=== PATIENT | female | born 1945 | race Two or more races ===

== ENCOUNTER 2023-12-18 08:47 | Day surgery (SDC) | payer MEDICARE, OTHER, SELFPAY ==
--- NOTE | 2023-12-18 10:11 | W.PN.UPDATE ---
Update Note
Progress Note Update
Patient presented for outpatient CD cardioversion for symptomatic AF found to be in sinus rhythm 67 bpm with iRBBB. QTc 445ms. Procedure cancelled. Updated her public policy analyst Dr. Jonas. Recommend outpatient follow up to discuss treatment options for
PAF. Continue current therapy with metoprolol succinate and OAC with Eliquis.
== END 2023-12-18 10:30 | disposition home or self-care (01) ==
LOC: CATH 08:47
PROVIDERS: ATTENDING PHYSICIAN Internal Medicine Cardiovascular Disease; FAMILY PHYSICIAN Internal Medicine; OTHER PHYSICIAN Internal Medicine Cardiovascular Disease
DX: I48.0 Paroxysmal atrial fibrillation (principal); Z53.09 Procedure and treatment not carried out because of other contraindication; I45.10 Unspecified right bundle-branch block; Z79.01 Long term (current) use of anticoagulants; Z79.899 Other long term (current) drug therapy
CPT/HCPCS: 93005

== ENCOUNTER → 2024-01-07 13:37 | Outpatient (REF) | payer MEDICARE, OTHER, SELFPAY | LOC: HWRCS 13:37 | PROVIDERS: ATTENDING PHYSICIAN Physician Assistant Medical; FAMILY PHYSICIAN Internal Medicine | DX: I45.10 Unspecified right bundle-branch block (principal); I48.0 Paroxysmal atrial fibrillation | CPT/HCPCS: 93306 ==

== ENCOUNTER 2024-02-25 10:35 | Emergency (ER) | payer MEDICARE, OTHER, SELFPAY ==
[2024-02-25] VITALS (9 sets, daily range): BP systolic 100–147; BP diastolic 51–96
--- NOTE | 2024-02-25 11:01 | ED.GENMED ---
History of Present Illness
General
Chief Complaint: Heart Rate Problem
Source: patient and spouse
Exam Limitations: none
Time Seen by Provider: 02/25/24 10:50
Nursing documentation reviewed up to this point in time: agreed with
History of Present Illness
History of Present Illness:
78-year-old female presents emergency room due to feeling of heart racing. She has a history of atrial fibrillation. She takes Eliquis. She was scheduled to have a cardioversion in December, but was found to be in sinus rhythm at that time. She
does not drink alcohol, and denies being sick.
Past History
Past History
ED Past Medical History: Arrthythmia and HTN
ED Past Surgical History: Appendectomy
Social History
Tobacco: Non-smoker
Alcohol: None
Drug: None
Personal:
Living: with family
Review of Systems
Review of Systems
Allergies reviewed?: Yes
All Other Systems: Not applicable
Constitutional: Reports no symptoms
EENT: Reports no symptoms
Respiratory: Reports no symptoms
Cardiac: Reports palpitations
ABD/GI: Reports no symptoms
: Reports no symptoms
Musculoskeletal: Reports no symptoms
Skin: Reports no symptoms
Neurological: Reports no symptoms
Endocrine: Reports no symptoms
Hematologic/Lymphatic: Reports no symptoms
Psychiatric: Reports no symptoms
Phy Exam
Physical Exam
Physical Exam:
Physical Exam
General: no apparent distress, not acutely ill
Neck: supple. no meningeal signs. normal posterior pharynx
Heart: s1/s2 tachycardia, irregular rhythm, no murmur. equal radial
pulses.
HEENT: Pupils equal round reactive to light, EOMI
Lungs: no acute respiratory distress. clear bilaterally
Abdomen: normal bowel sounds. not tender. no CVAT
Neuro: alert and oriented. no focal neurological deficits cranial nerves II through XII intact
Skin: no rash
Psychiatric: well kept. interactive and cooperative
Extremities: no edema. no calf tenderness. negative homans. good distal pulses
Course
Orders/Labs/Results
Orders:
Orders
02/25/24 10:35
ECG [Electrocardiogram (*1)] Urgent
Reason for Study: Palpitations
02/25/24 10:36
EKG- Treatment ONCE
02/25/24 10:59
IV Insert/Care/Rem.- Treatment PRN
Diltiazem 125 mg/125 ml Nss [Cardizem] 125 mg in 125 ml IV NOW
Initial dose in mg/hr, then titrate:: 5
Titrate to keep:: Heart rate 80-100 bpm
Titrate by mg/hr:: 5 mg/hr
Frequency of titrations (minutes):: 15
Maximum dose in mg/hr:: 15
Diltiazem HCl [Cardizem] 5 mg IV NOW STA
02/25/24 11:00
Cardiac Monitoring- Treatment ONCE
02/25/24 11:02
Complete Blood Count/With Diff Urgent
Comprehensive Metabolic Panel Urgent
Magnesium Urgent
02/25/24 12:46
Electrocardiogram (*1) Urgent
Reason for Study: Atrial Fibrillation
EKG- Treatment ONCE
Abnormal Lab Results
02/25/24
11:02
Abs Immat Gran (auto) 0.1 H 10^3/uL
(0-0.05)
Absolute Neuts (auto) 7.9 H 10^3/uL
(1.4-6.5)
Absolute Monos (auto) 1.0 H 10^3/uL
(0.1-0.6)
Neutrophils % 75.9 H %
(42.2-75.2)
Lymphocytes % 14.2 L %
(20.5-51.1)
Chloride 110 H mmol/L
(98-107)
Glucose 136 H mg/dl
(70-99)
02/25/24 11:02
02/25/24 11:02
Vital Signs
Initial and Last Documented VS:
Initial Vital Signs
Temp Pulse Resp BP Pulse Ox
98.2 F 146 16 147/96 97
02/25/24 10:36 02/25/24 10:36 02/25/24 10:36 02/25/24 10:36 02/25/24 10:36
Last Documented Vital Signs
Temp Pulse Resp BP Pulse Ox
98.2 F 71 8 125/51 97
02/25/24 10:36 02/25/24 13:00 02/25/24 13:00 02/25/24 13:00 02/25/24 10:36
MDM/Problems Addressed
Differential Diagnosis Includes:
Sinus pauses, rapid A-fib
MDM/Problems Addressed:
78-year-old female with paroxysmal atrial fibrillation, spontaneously converted with conversion pauses. Discussed with Dr. DAVID Pollock, who agrees with discharge and follow-up with Dr. Jonas.
Chronic conditions affecting care: Arrhythmia
Acute Exacerbation and/or Progression of Chronic Illness: Arrhythmia
*Pulse Oximetry
Patient hypoxic: no
*EKG
Interpreted by ED Provider?: Yes
EKG Intrepretation Date: 02/25/24
EKG Intrepretation Time: 10:40
Interpretation: abnormal
Comparison EKG: changes noted
Heart Rate: 149
Rate: tachycardiac
Rhythm: a-fib
Crumpler: normal axis
Interval: normal interval
QRS Pattern: right bundle branch block
Ischemia: no ischemia
*Radio Intelligence Operator Interpretation
Rate: tachycardiac
Interpretation: abnormal
Rhythm: a-fib
*Critical Care Note
Total Time (30-74mins, 75-104mins- exclusive of procedures): 30
comment:
Critical care statement: A total of 30 minutes of critical care time was provided for this patient. This includes management of unstable vital signs, evaluation of the patient at bedside, reviewing the patient's pertinent medical records, discussion
with consultants, review of old EKGs and review of pertinent medical records. This time with separate from time utilized to perform the aforementioned documented procedures
Data Reviewed
Review of Other/Old Records Reveals: Operative Reports (Presented for cardioversion 12/18/23, but spontaneously converted)
Source: records
Patient Management
Social determinants of health affecting care: Living situation and Strong social support
Discussion with other providers: Medical Staff Coordinator (cardiology)
Escalation/DeEscalation of care consider admission/obs:
admit not indicated
ED Attending Note
-
Portions of this chart may have been created with voice recognition software.� Occasional wrong word or��sound alike� substitutions may have occurred due to the inherent limitations of voice recognition software.
Discharge Plan
Departure
Patient Disposition: Home (Routine Discharge)
Date of Disposition: 02/25/24
Time of Disposition: 13:01
Patient with high blood pressure during this ER visit?: No
Condition: Good
Discharge Problem:
PAF (paroxysmal atrial fibrillation)
Instructions: Atrial Fibrillation (DC)
Referrals:
Tiffanie Dumont, DO [Active] - Call in 1-3 days for appt
Rosina East MD [Family Provider] -
Interventions
Interventions:
*Risk Screen - Suicide Last Done: 02/25/24 10:36
*General Assessment Last Done: 02/25/24 11:53
*Neglect/Abuse Screening Last Done: 02/25/24 10:36
*ED COVID-19 Vaccine History Last Done: 02/25/24 11:53
Discharge Date and Time
Print Language: IRAQI
[2024-02-25] MEDS: CARDIZEM 5 MG IV (11:06)
[2024-02-25] MEDS: CARDIZEM 125 IV (11:06)
[2024-02-25 11:20] LABS: % Basophils 0.2 % (0-2); % Eosinophils 0.1 % (0-6); % Immature Granulocytes 0.5 % (0-0.5); % Lymphocytes 14.2 % (20.5-51.1); % Monocytes 9.1 % (1.7-9.3); % Neutrophils 75.9 % (42.2-75.2); Absolute Immature Granulocytes 0.1 10^3/uL (0-0.05); Absolute Lymphocytes 1.5 10^3/uL (1.2-3.4); Absolute Neutrophils 7.9 10^3/uL (1.4-6.5); Hematocrit 44.8 % (37.0-47.0); Hemoglobin 14.9 g/dL (12.0-16.0); Mean Corp Hgb Conc. 33.3 g/dL (33.0-37.0); Mean Corpuscular Hgb 30.4 pg (27.0-31.0); Mean Corpuscular Volume 91.4 fL (81.0-99.0); Mean Platelet Volume 9.8 fL (7.4-10.4); Nucleated Red Blood Cells % 0 %; Platelet Count 274 10^3/uL (130-400); Red Cell Dist. Width 13.6 % (11.5-14.5); White Blood Cell Count 10.4 10^3/uL (4.8-10.8)
[2024-02-25 11:35] LABS: ALT (SGPT) 19 U/L (0-35); AST (SGOT) 24 U/L (14-36); Albumin 4.4 g/dl (3.5-5.0); Alkaline Phosphatase 65 U/L (38-126); Calcium 9.5 mg/dl (8.4-10.2); Carbon Dioxide 23 mmol/L (22-30); Chloride 110 mmol/L (98-107); Glucose 136 mg/dl (70-99); Magnesium 2.2 mg/dl (1.6-2.3); Potassium 3.9 mmol/L (3.5-5.1); Sodium 145 mmol/L (135-145); Total Protein 6.8 g/dl (6.3-8.2); eGFR > 60.00
[2024-02-25 12:51] LABS: Blood Urea Nitrogen 14 mg/dl (7-17); Total Bilirubin 0.6 mg/dl (0.2-1.3)
--- NOTE | 2024-02-25 13:08 | EDRN ---
1228 pt. had another pause episode. Dr. Hannon made aware, stated to put pads on pt.
--- NOTE | 2024-02-25 13:08 | EDRN ---
1246 pt. noted to be in sinus rhythm, EKG performed, brought to Dr. Hannon.
== END 2024-02-25 13:34 | disposition home or self-care (01) ==
LOC: EMR 10:35
PROVIDERS: EMERGENCY PHYSICIAN Emergency Medicine; FAMILY PHYSICIAN Internal Medicine
DX: I48.0 Paroxysmal atrial fibrillation (principal); I10 Essential (primary) hypertension; Z90.49 Acquired absence of other specified parts of digestive tract; I45.10 Unspecified right bundle-branch block
CPT/HCPCS: 99291; 96374; 96376; 80053; 83735; 85025; 93005